=== PATIENT | female | born 2000 | race Caucasian/White ===

== ENCOUNTER 2020-03-27 12:28 | Outpatient (CLI) | payer BC, SELFPAY ==
--- NOTE | 2020-03-27 | US_ITS ---
WS: [id number] PELVIC ULTRASOUND REASON FOR VISIT: ADB PAIN AM. UTI TECHNIQUE: Grayscale and Doppler transabdominal and transvaginal pelvic ultrasound. FINDINGS: Uterus measures 8.0 cm x 5.1 cm x 3.2 cm, right ovary measures 3.3 cm x 2.2 cm x 2.8 cm, and left ova ry measures 4.0 cm x 2.6 cm x 3.8 cm. The right ovary shows a prominent cystic structure with internal echoes consistent with hemorrhagic c yst. There is also noted fluid in the cul-de-sac area particularly on the left side. The urinary bladder shows some hyperechoic changes suspicious of inflammatory changes. Both ovaries show good blood flow The cervix appeared to be normal in a normal size uterus is seen. Free fluid is also noted in the rig ht adnexa area and cul-de-sac areas. US/US pelvic with transvaginal IMPRESSION: Hemorrhagic right ovarian cyst Free fluid in the cul-de-sac area We suspect cystitis changes. There is no definite evidence on the study of ectopic If ectopic continues to be suspicious follow-up's with ECG's and beta studies are recommended.
== END 2020-03-27 12:29 | disposition home or self-care (01) ==
LOC: RAD 12:29
PROVIDERS: Visit Provider Nurse Practitioner Family
DX: N39.0 Urinary tract infection, site not specified (principal); N91.2 Amenorrhea, unspecified; R10.30 Lower abdominal pain, unspecified; N83.201 Unspecified ovarian cyst, right side
CPT/HCPCS: 76830; 76856

== ENCOUNTER → 2020-06-14 09:38 | Outpatient (BNVA) | payer BC, SELFPAY | PROVIDERS: Visit Provider Registered Nurse | DX: N89.8 Other specified noninflammatory disorders of vagina (principal); A64 Unspecified sexually transmitted disease | CPT/HCPCS: 81000; 87491; 87591; 87661 ==

== ENCOUNTER → 2023-01-22 10:10 | Outpatient (BNVA) | payer BC, MEDICAID, SELFPAY | PROVIDERS: Visit Provider Nurse Practitioner Women's Health | DX: Z00.00 Encounter for general adult medical examination without abnormal findings (principal) | CPT/HCPCS: 85025 ==

== ENCOUNTER → 2023-02-03 12:31 | Outpatient (BNVA) | payer BC, MEDICAID, SELFPAY | PROVIDERS: Visit Provider Nurse Practitioner Women's Health | DX: R10.2 Pelvic and perineal pain (principal) | CPT/HCPCS: 76830 ==